=== PATIENT | female | born 1930 | race Caucasian/White ===

== ENCOUNTER 2017-01-27 10:31 | Outpatient (CLI) | payer MEDICARE, MEDICAID ==
--- NOTE | 2017-01-27 15:02 | CT ---
CT OF ABDOMEN AND PELVIS PERFORMED WITH INTRAVENOUS CONTRAST ENHANCEMENT: Comparison: 10-08-16 History: Right sided abdomen pain for three years. History of cholecystectomy, appendectomy and hyst erectomy. FINDINGS: The lung bases show chronic change and subsegmental atelectasis. There is elevation to the left doroteo diaphragm noted. The liver and spleen are normal size. There is a small hypodensity within in the right lobes statist ically most likely a cyst which is stable. There is pneumobilia present with air within the left add ucts which is probably related to the cholecystectomy. Right and left adrenal glands and right and left kidneys are normal in size. There is a left sided i nferior vena cava incidentally noted crossing at midline at the level of the left renal vein. There was atherosclerotic changes within the aorta. CT OF PELVIS PERFORMED WITHOUT CONTRAST ENHANCEMENT: A moderate amount of stool in the rectosigmoid region. The uterus has been removed. There is no evid ence of adenopathy or mass. Generalized muscle atrophy is noted. A left hip prosthesis is present. Post-operative changes of the spine are noted. There are bilateral pedicle screw placement at the L4 , L5 and S1. The T11 and T12 vertebral bodies show compression changes, more pronounced at T11. IMPRESSION: 1. Post op cholecystectomy change with some minimal pneumobilia present with air within the left hep atic ducts. 2. Post-operative changes of the spine with compression changes of the T11-12 vertebral bodies which appears fairly similar to the previous exam with perhaps some slight increase in compression to T11 . 3. 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 POS: [facility]
[2017-01-27] MEDS ORDERED: Iopamidol 370 76% 100 ML VIAL ONE (15:44)
== END 2017-01-27 10:32 | disposition home or self-care (01) ==
LOC: CT 10:31
PROVIDERS: ATTEND Internal Medicine
DX: R10.9 Unspecified abdominal pain (principal)
CPT/HCPCS: 74177

== ENCOUNTER 2017-08-16 01:59 | Observation (INO) | payer MEDICARE, MEDICAID ==
[2017-08-16] MEDS ORDERED: Nitroglycerin 2% Ointment 1 INCH/1 GM Packet ONE (02:23)
[2017-08-16 02:43] LABS: #Basophils 0.1 thou/uL (0.0-0.2); #Eosinphils 0.1 thou/uL (0.0-0.7); #Lymphocytes 3.7 thou/uL (1.20-3.40); #Monocytes 0.5 thou/uL (0.11-0.59); %Basophils 1.3 % (0.0-1.0); %Lymphocytes 49.8 % (21.0-51.0); %Monocytes 6.7 % (0.0-10.0); %Neutrophils 40.3 % (42.0-75.0); Hemoglobin 13.9 g/dL (12.0-16.0); Mean Corpuscular HGB CONC 34.7 g/dL (32.0-36.0); Mean Corpuscular Hemoglobin 34.2 pg (27.0-31.0); Mean Corpuscular Volume 98.7 fl (81.0-99.0); Mean Platelet Volume 5.8 fL (7.4-10.4); Platelet Count 288 thou/uL (130-400); Red Blood Cell (RBC) Count 4.07 mill/uL (4.20-5.40); White Blood Cell (WBC) Count 7.4 thou/uL (4.8-10.8)
[2017-08-16 03:03] LABS: ALT (SGPT) 28 U/L (8-55); AST (SGOT) 34 U/L (5-34); Alkaline Phosphatase 87 U/L (40-150); Anion Gap 9 mmol/L (10-20); BUN (Urea Nitrogen) 9 mg/dL (9.8-20.1); Bilirubin, Total 0.5 mg/dL (0.2-1.2); CK (CPK) 19 U/L (29-168); Calc. Creatinine Clearance 0 mL/min (70-130); Calcium 9.8 mg/dL (7.8-10.44); Carbon Dioxide 27 mmol/L (23-31); Chloride 97 mmol/L (98-107); Estimated GFR-MDRD 68; Glucose 109 mg/dL (83-110); Potassium 4.5 mmol/L (3.5-5.1); Sodium 128 mmol/L (136-145)
[2017-08-16 03:07] LABS: CKMB 0.5 ng/mL (0-6.6); Troponin I Less than 0.010 ng/mL (< 0.028)
[2017-08-16] MEDS ORDERED: Albuterol Sulfate 2.5 mg/3 ml Neb NEB PRN (03:45)
[2017-08-16] MEDS ORDERED: hydrALAZINE 20 MG/ML VIAL ONE (04:11)
[2017-08-16 05:01] VITALS: BMI 23.0
[2017-08-16] MEDS ORDERED: Ondansetron ODT 4 MG TAB SL PRN (05:24)
[2017-08-16] MEDS ORDERED: Acetaminophen 325 MG TAB PO PRN ×2 (05:24→07:20)
[2017-08-16] MEDS ORDERED: Ondansetron PF 4 MG/2 ML Vial IVP PRN (05:24)
[2017-08-16 05:55] LABS: Troponin I 0.011 ng/mL (< 0.028)
[2017-08-16] MEDS ORDERED: Ondansetron ODT 4 MG TAB PO PRN (07:20)
[2017-08-16] MEDS ORDERED: guaiFENesin 100 MG/5 ML UDCUP PO PRN (07:20)
[2017-08-16] MEDS ORDERED: traMADol HCl 50 MG TAB PO PRN (07:20)
[2017-08-16] MEDS ORDERED: Loperamide HCl 2 MG CAP PO SCH (07:30)
[2017-08-16] MEDS ORDERED: Ibuprofen 600 MG TAB PO PRN (07:30)
--- NOTE | 2017-08-16 07:35 | PDOC.EVN ---
Event Note - Event Note Event Note: DNR confirmed with daughter, Kayla Fountainshruti
--- NOTE | 2017-08-16 07:46 | CT ---
PRELIMINARY REPORT/[facility]/EMERGENCY AFTER HOURS PROCEDURE: EXAM: CT Angiography Chest With Intravenous Contrast CLINICAL HISTORY: 86 years old, female; Pain; Chest pain; R/O PE TECHNIQUE: Axial computed tomographic angiography images of the chest with intravenous contrast using pulmonary embolism protocol. MIP reconstructed images were created and reviewed. Coronal reformatted images were created and reviewed. Oblique reformatted images were created and reviewed. CONTRAST: 100 mL of ISOVUE administered intravenously. COMPARISON: No relevant prior studies available. FINDINGS: Pulmonary arteries: No evidence of pulmonary embolism. Aorta: Normal caliber thoracic aorta without dissection or aneurysm. Other arteries: Approximate 13 mm peripherally-calcified lateral splenic artery aneurysm. Lungs: No alveolar infiltrate. Areas of linear parenchymal scarring or subsegmental collapse / atelec tasis in the right middle lobe, each lower lobe, adjacent to each superior major fissure, and in the inferior lingula. No mass. Pleural space: No pleural fluid collection. No pneumothorax. Heart: Coronary artery and aortic / mitral valve annulus calcification. No pericardial effusion. No e vidence of RV dysfunction. Thyroid: Bilateral thyroid nodules. Bones/joints: Spinal degenerative changes. Multiple scattered spinal compression fractures. No disloc ation. Soft tissues: Unremarkable. Lymph nodes: No pathologically enlarged lymph nodes. Gallbladder and bile ducts: Status post cholecystectomy. Other findings: Evidence of old granulomatous disease. IMPRESSION: 1. No evidence of pulmonary embolism. 2. No alveolar infiltrate. 3. Areas of linear parenchymal scarring or subsegmental collapse / atelectasis in the right middle lo be, each lower lobe, adjacent to each superior major fissure, and in the inferior lingula. Thank you for allowing us to participate in the care of your patient. Dictated and Authenticated by: Oral Johnston MD 08/16/2017 4:19 AM Central Time ([place] & [place]) FINAL REPORT EMERGENCY AFTER HOURS CT PULMONARY ANGIO CHEST INCLUDING 3D RENDERING: Date: 08/16/17 Time: 0318 hours FINDINGS/IMPRESSION: No CT evidence for significant pulmonary embolism. 1.3 cm diameter splenic artery aneurysm. Bilateral parenchymal scarring and some partial atelectasis, particularly in the right middle lobe and each lo wer lobe, and lingula. Significant bony demineralization with numerous thoracic spine compression fra ctures, variable severity, and unknown age. Report in agreement with preliminary report given on-call by Larry. POS: [facility]
--- NOTE | 2017-08-16 08:20 | RAD ---
PORTABLE UPRIGHT CHEST 1 VIEW: Date: 08/16/17 HISTORY: 86-year-old female with history of dyspnea, decreased O2 sats on room air. COMPARISON: 10/08/16. FINDINGS: Extensive surgical clips are noted in the left chest wall and axilla. Moderate left hemidiaphragm teena vation with some linear and parenchymal changes in both bases, having more the appearance of chronic change. Atherosclerosis of aorta with ectasia. IMPRESSION: Left hemidiaphragm elevation with linear and parenchymal changes in both bases, having more the appea lissette of old change. Atherosclerosis of aorta with ectasia. Postoperative changes in the left chest w all and axilla. No confluent pneumonia, overt edema, or pleural effusion. POS: [facility]
[2017-08-16 08:23] LABS: Anion Gap 12 mmol/L (10-20); BUN (Urea Nitrogen) 9 mg/dL (9.8-20.1); Calc. Creatinine Clearance 51 mL/min (70-130); Calcium 9.9 mg/dL (7.8-10.44); Carbon Dioxide 25 mmol/L (23-31); Chloride 96 mmol/L (98-107); Estimated GFR-MDRD 69; Glucose 105 mg/dL (83-110); Sodium 129 mmol/L (136-145)
[2017-08-16 08:26] LABS: Troponin I Less than 0.010 ng/mL (< 0.028)
[2017-08-16] MEDS: Gabapentin 300 MG CAP PO SCH ×2 (08:39→14:48)
[2017-08-16] MEDS: Cholestyramine/Aspartame 4 gm Packet PO SCH ×2 (08:40→10:04)
--- NOTE | 2017-08-16 08:57 | HP ---
PRIMARY CARE PROVIDER: Lori Mendoza. RESIDENT: From [facility], [facility], hypoxia . HISTORY OF PRESENT ILLNESS: The patient states she fell in the shower 10 days ago. Since then, she has had pains in her upper chest and her shoulders with motion, just sharp nagging pain, goes away wh en she quits moving, hurts to move. She has had some minimal shortness of breath with the pain, no s weats, no nausea. She relates all of her pain to her fall. PAST MEDICAL HISTORY: Pertinent for breast cancer status post bilateral mastectomy, gastroesophageal reflux disease, history of transient ischemic attack, peripheral vascular disease, essential hyperte nsion, some chronic depression. PAST SURGICAL HISTORY: Bilateral hip arthroplasties, appendectomy, hysterectomy aforementioned maste ctomies, cholecystectomy. ALLERGIES: SULFA, HYDROCODONE. MEDICATIONS: Tramadol 50 mg q.6 hours p.r.n. pain, Zoloft 100 mg at bedtime, Florastor, K-Dur 20 mEq a day, omeprazole 40 mg a day, metoprolol 50 mg twice a day, losartan 100 mg a day, lisinopril 20 mg a day, gabapentin 300 mg t.i.d., Questran Light 4 grams a day, vitamin D3, Lipitor 20 mg a day, aspi rin 81 mg a day, amlodipine 5 mg a day. SOCIAL HISTORY: , out of hospital DNR. Daughter is Kayla Blandon. No tobacco. No alcohol . FAMILY HISTORY: No hypertension and diabetes. REVIEW OF SYSTEMS: General: No headaches, dizziness or fainting. Eyes: No double vision, blurred vision, flashing lights. ENT: No ear pain or drainage. No nasal bleeding. No trouble swallowing. Cardiac: No pressure, chest pain, no orthopnea, no paroxysmal nocturnal dyspnea. Respiratory: No cough, wheezing or asthma. Gastrointestinal: She has diarrhea with certain foods, no melena, no abd ominal pain, no nausea or vomiting. Genitourinary: No hematuria, dysuria. Musculoskeletal: No eros n or swelling in arms or legs. She does have the pain in her shoulders when she moves around related to the fall. Neurologic: She states she has had mini strokes in the past with no residual. Psychi atric: Chronic depression, stable at present. Skin: Easy bruising, no rash. Heme/Lymph: No tende r or swollen lymph nodes in axilla, inguinal, or cervical area. PHYSICAL EXAMINATION: VITAL SIGNS: Her blood pressure is 159/71, pulse 58, temperature 97.9. Her lowest O2 saturation I c an find is 92 on room air. She was put on oxygen in the emergency room for this. HEENT: Reveal pupils round, reactive. Extraocular movements are intact. Sclerae white. Tympanic m embranes clear. Nose clear. Oral mucous membranes are wet. NECK: Supple, without jugular venous distention, adenopathy or thyromegaly. CHEST: Clear to auscultation and percussion. HEART: Has a regular rate and rhythm. First and second heart sounds are clear. There are no apprec iated murmurs or gallops. ABDOMEN: Soft. Bowel sounds are normal. There is no hepatosplenomegaly, no mass, no rebound. EXTREMITIES: Reveal no cyanosis, clubbing or edema. SKIN: She has bruising about her arms. She has very thin skin. PULSES: Carotid, radial, femoral pulses intact. Pedal pulses diminished symmetric. HEME/LYMPH: No tender or swollen lymph nodes in axilla, inguinal, or cervical area. No petechial he morrhages. NEUROLOGICAL: Cranial nerves II through XII are intact. Deep tendon reflexes symmetric. Moves all extremities. IMAGING: EKG, mild sinus bradycardia with T-wave inversion in the anterior precordial leads, reviewe d by me. Chest x-ray, elevated hemidiaphragm on the left. No cardiomegaly, CHF or infiltrate. CT s can of the chest is pending a formal report. LABORATORY DATA: CBC is essentially normal. Sodium was 128, potassium 4.5, BUN 9, creatinine 0.8. Cardiac enzymes normal x2. ADMITTING DIAGNOSES: 1. Musculoskeletal chest pain from a fall 10 days ago. 2. Hypertension. 3. Dyslipidemia. 4. Peripheral vascular disease. We will obtain formal report on CT of the chest. We will [facility] metabolic profile. We will obtain one more cardiac enzyme. If these are normal, we return to [facility] later today.
[2017-08-16] MEDS ORDERED: Potassium Chloride 20 MEQ TAB PO SCH (09:00)
[2017-08-16] MEDS ORDERED: Aspirin 325 mg Enteric Coated Tablet PO SCH (09:00)
[2017-08-16] MEDS ORDERED: Artificial Tears 18 DROP/0.9 ML EA EYE SCH (09:00)
[2017-08-16] MEDS ORDERED: Saccharomyces boulardii 250 MG CAP PO SCH (09:00)
[2017-08-16] MEDS ORDERED: Lisinopril 20 MG TAB PO SCH (09:00)
[2017-08-16] MEDS ORDERED: Amlodipine 5 MG TAB PO SCH (09:00)
[2017-08-16] MEDS ORDERED: Losartan 25 MG TAB PO SCH (09:00)
[2017-08-16] MEDS: Metoprolol Tartrate 50 MG TAB PO SCH ×2 (10:05→13:22)
[2017-08-16 16:23] VITALS: BP 144/64; TEMP 97.6
--- NOTE | 2017-08-16 16:27 | DIS ---
DATE OF ADMISSION: 08/16/2017 DATE OF DISCHARGE: 08/16/2017 PRIMARY CARE PROVIDER: Dr. Lori Mendoza. DISCHARGE DISPOSITION: Discharged back to [facility]. FINAL DIAGNOSES: Musculoskeletal chest pain post-fall, hypertension, dyslipidemia, peripheral vascul ar disease. DISCHARGE MEDICATIONS: Same as her scheduled regular medicines, tramadol 50 mg p.o. q.6 hours p.r.n. pain, Zoloft 100 mg a day, Florastor 1 a day, K-Dur 20 mEq a day, omeprazole 40 mg a day, metoprolol 50 mg twice a day, losartan 100 mg a day, lisinopril 20 mg a day, gabapentin 300 mg 3 times a day, Q uestran Light 4 grams a day, vitamin D3 2000 units a day, Lipitor 20 mg a day, aspirin 81 mg a day, a mlodipine 5 mg a day, acetaminophen 1000 mg p.o. q.6 hours p.r.n. ALLERGIES: SULFA, TRIMETHOPRIM, HYDROCODONE. PENDING AT TIME OF DISCHARGE: Nothing. CODE STATUS: DNR, has felt the patient directive confirmed with daughter. DIET: Heart healthy. HISTORY: The patient fell 10 days ago, has been having upper chest and shoulder pain with motion sin ce she has no pressure or chest pain. She has no pain without motion of those, she relates it to phy sical stress from her fall. In the emergency room, a CTA of the thorax was done which revealed no cl ot. Chest x-ray was done, which revealed no acute abnormality. Her CBC was normal except for some m inimal technical abnormalities. Cardiac enzymes normal x3. Sodium 128, 129, potassium 4.5, 4.0, cre atinine 0.8, 0.79. Liver function test normal. I discussed the situation with her daughter, discuss ed it with the patient who is alert, cooperative. She is desirous of returning to the detention. I am returning her to the detention. CONSULTATIONS: None. PROCEDURES: None.
[2017-08-16] MEDS ORDERED: ISOVUE-370 76%-LOCM 1 ML ONE (18:28)
[2017-08-16] MEDS ORDERED: Atorvastatin Calcium 20 MG TAB PO SCH (21:00)
--- NOTE | 2017-12-06 18:02 | EKG ---
Test Reason : Blood Pressure : / mmHG Vent. Rate : 056 BPM Atrial Rate : 056 BPM P-R Int : 190 ms QRS Dur : 092 ms QT Int : 422 ms P-R-T Axes : -08 024 099 degrees QTc Int : 407 ms Sinus bradycardia T wave abnormality, consider anterolateral ischemia Abnormal ECG Confirmed by RANDOLPH MATTHEWS, LOI Sargent ([id number]), writer editor RUBÉN CHRIS ([id number]) on 12/06/2017 6:02:16 PM Referred By: Confirmed By:LOI DICKSON MD
== END 2017-08-16 16:33 ==
LOC: ERS 01:59 → INTOOBSV 03:45 → 2NO 03:45
PROVIDERS: ADMIT Internal Medicine; ATTEND Internal Medicine
DX: R07.89 Other chest pain (principal); I10 Essential (primary) hypertension; E78.5 Hyperlipidemia, unspecified; I73.9 Peripheral vascular disease, unspecified; Z88.2 Allergy status to sulfonamides; Z88.8 Allergy status to other drugs, medicaments and biological substances; Z79.82 Long term (current) use of aspirin; Z79.899 Other long term (current) drug therapy
CPT/HCPCS: 71045; 71275; 80048; 80053; 82550; 82553; 83605; 83880; 84484 ×2; 85025; 87040; 93005; 96374; 99285; G0378; 36415; J0360

== ENCOUNTER 2017-12-31 16:17 | Emergency (ER) | payer MEDICARE, MEDICAID ==
[2017-12-31 17:42] LABS: #Basophils 0.1 thou/uL (0.0-0.2); #Eosinphils 0.3 thou/uL (0.0-0.7); #Lymphocytes 2.9 thou/uL (1.20-3.40); #Monocytes 0.5 thou/uL (0.11-0.59); #Neutrophils 3.5 thou/uL (1.40-6.50); %Eosinophils 4.7 % (0.0-10.0); %Lymphocytes 39.7 % (21.0-51.0); %Monocytes 6.7 % (0.0-10.0); %Neutrophils 47.9 % (42.0-75.0); Mean Corpuscular HGB CONC 33.5 g/dL (32.0-36.0); Mean Corpuscular Volume 98.5 fL (78.0-98.0); Mean Platelet Volume 7.3 fL (7.4-10.4); Platelet Count 238 thou/uL (130-400); RBC Distribution Width 11.9 % (11.5-14.5); Red Blood Cell (RBC) Count 4.23 mill/uL (4.20-5.40); White Blood Cell (WBC) Count 7.2 thou/uL (4.8-10.8)
[2017-12-31 18:11] LABS: CKMB 0.6 ng/mL (0-6.6)
[2017-12-31 18:11] LABS: Bilirubin Negative (Negative); Blood, Urine Negative (Negative); Clarity CLOUDY (Clear); Glucose, Urine (Dipstick) Negative (Negative); Leukocyte Large (Negative); Nitrite Negative (Negative); Protein, Urine (Dipstick) Negative (Neg-Trace); Specific Gravity, Urine 1.008 (1.002-1.036)
[2017-12-31 18:12] LABS: ALT (SGPT) 29 U/L (8-55); AST (SGOT) 30 U/L (5-34); Alkaline Phosphatase 73 U/L (40-150); Anion Gap 11 mmol/L (10-20); BUN (Urea Nitrogen) 16 mg/dL (9.8-20.1); Bilirubin, Total 0.5 mg/dL (0.2-1.2); CK (CPK) 29 U/L (29-168); Calc. Creatinine Clearance 0 mL/min (70-130); Calcium 9.5 mg/dL (7.8-10.44); Carbon Dioxide 28 mmol/L (23-31); Chloride 100 mmol/L (98-107); Estimated GFR-MDRD 51; Globulin 3.9 g/dL (2.4-3.5); Glucose 100 mg/dL (83-110); Lipase 19 U/L (8-78); Protein, Total 7.9 g/dL (6.0-8.3); Sodium 134 mmol/L (136-145)
[2017-12-31 18:12] LABS: Bacteria/HPF 4+ HPF (None Seen); Hyaline Casts/LPF 0-3 HYALINE CAST LPF (0-3 Hyaline); Pathc Cast-AUWi Flag 0.58 (0-2.49); RBC/HPF 0-3 HPF (0-3); Squamous Epithelial 0-3 HPF (0-3)
--- NOTE | 2017-12-31 19:05 | RAD ---
CHEST ONE VIEW: 12/31/17 HISTORY: Chest pain. COMPARISON: 08/16/17. FINDINGS: The cardiac silhouette is magnified by projection. Pulmonary vasculature unremarkable. Mediastinum is midline with aortic calcification. No lobar consolidation or evidence of pneumothorax. Metallic clip s over the left chest wall. IMPRESSION: Atherosclerosis. Chronic type findings are stable. No active cardiopulmonary abnormalities are demons trated. POS: [facility]
[2017-12-31] MEDS ORDERED: Sodium Chloride 0.9% 100 ML ONE (19:19)
[2017-12-31] MEDS ORDERED: cefTRIAXone\\ROCEPHIN 2 GM VIAL ONE (19:19)
== END 2017-12-31 22:12 ==
LOC: ERS 16:17
DX: N39.0 Urinary tract infection, site not specified (principal); M19.90 Unspecified osteoarthritis, unspecified site; I10 Essential (primary) hypertension; F32.9 Major depressive disorder, single episode, unspecified; F41.9 Anxiety disorder, unspecified; Z79.899 Other long term (current) drug therapy; Z86.73 Personal history of transient ischemic attack (TIA), and cerebral infarction without residual deficits; Z79.82 Long term (current) use of aspirin
CPT/HCPCS: 36415; 51701; 71045; 80053; 81003; 81015; 82553; 83690; 84484; 85025; 85652; 86140; 87077; 87086; 87186; 93005; 94760; 96365; J0696; J7050

== ENCOUNTER 2018-09-08 18:49 | Emergency (ER) | payer MEDICARE, MEDICAID ==
--- NOTE | 2018-09-08 19:28 | CT ---
CT head noncontrast HISTORY: Fall. Head injury. COMPARISON: 07/30/2016. FINDINGS: There is no evidence of acute intracranial hemorrhage or infarct. Mild diffuse cortical atr ophy and chronic ischemic small vessel disease are again demonstrated. There is no mass effect or shift of midline structures. Small densely calcified exostosis along the inner table of the left fron isabella calvarium is stable and may represent an osteoma or small meningioma. Soft tissue swelling over the left frontal calvarium. No depressed skull fractures. Chronic mucosal thickening in the maxillary sinuses. IMPRESSION: Chronic-type findings are stable. No acute intracranial abnormalities are demonstrated.
--- NOTE | 2018-09-08 19:31 | CT ---
CT cervical spine noncontrast HISTORY: Fall. Neck injury. FINDINGS: Vertebral body heights and alignment are maintained. Osteophytosis and discs narrowing of e ach level. Cervicothoracic junction is intact. No acute fracture or dislocation. Prominent calcification in the arterial structures. IMPRESSION: Degenerative changes cervical spine. No acute osseous abnormalities are demonstrated. Atherosclerosis.
--- NOTE | 2018-09-08 20:23 | RAD ---
Left foot 3 views HISTORY: Fall. Left foot injury. FINDINGS: Lisfranc joint alignment is anatomic. Plantar arch is maintained. Joint spaces are preserve d. Severe demineralization of the bones. No acute fracture, dislocation, or radiopaque foreign bodies. IMPRESSION: No acute osseous abnormalities are demonstrated. Osteoporosis.
[2018-09-08] MEDS ORDERED: Bacitracin Zinc 1 Packet ONE ×2 (20:48→20:49)
== END 2018-09-08 20:45 ==
LOC: ERS 18:49
DX: S00.83XA Contusion of other part of head, initial encounter (principal); S80.812A Abrasion, left lower leg, initial encounter; F32.9 Major depressive disorder, single episode, unspecified; F41.9 Anxiety disorder, unspecified; K21.9 Gastro-esophageal reflux disease without esophagitis; I10 Essential (primary) hypertension; F03.90 Unspecified dementia, unspecified severity, without behavioral disturbance, psychotic disturbance, mood disturbance, and anxiety; E87.5 Hyperkalemia; Z86.73 Personal history of transient ischemic attack (TIA), and cerebral infarction without residual deficits; Z79.82 Long term (current) use of aspirin; Z79.899 Other long term (current) drug therapy; W17.89XA Other fall from one level to another, initial encounter
CPT/HCPCS: 70450; 72125